=== PATIENT | female | born 1940 | race Caucasian/White ===

== ENCOUNTER 2020-04-03 20:43 | Inpatient (IN) | payer MEDICARE, OTHER ==
[~2020-04-03] VITALS: Ht 154.9 cm; Wt 79.4 kg
--- NOTE | 2020-04-03 21:01 | NUR ---
GWENDOLYN FROM [facility] REPORTED NEGATIVE COVID STATUS.
[2020-04-03] MEDS ORDERED: LEVO25TA9 PO (21:41)
[2020-04-03] MEDS ORDERED: DILT-32 PO (21:41)
[2020-04-03] MEDS ORDERED: DOCU100C36 PO (21:41)
[2020-04-03] MEDS ORDERED: ATEN50TA PO (21:41)
[2020-04-03] MEDS ORDERED: APIX5TAB4 PO (21:41)
[2020-04-03] MEDS ORDERED: HYDR-4384 PO (21:41)
[2020-04-03] MEDS ORDERED: PANT40TA4 PO (21:41)
[2020-04-03] MEDS ORDERED: GABA-532 PO (21:41)
[2020-04-03] MEDS ORDERED: ONDA4TAB5 PO (21:41)
[2020-04-03] MEDS ORDERED: VALS40TA4 PO (21:41)
[2020-04-03] MEDS ORDERED: ATOR10TA PO (21:41)
--- NOTE | 2020-04-03 21:50 | NUR ---
GPS/ ADMIT TO [facility] UNDER DR. RAMIREZ
[2020-04-03] MEDS ORDERED: hydrALAZINE HCL 50 MG TABLET PO ONE (22:15)
[2020-04-03 22:30] VITALS: BP 187/106
[2020-04-03] MEDS: ACETAMINOPHEN 325 MG TABLET PO PRN (22:59)
[2020-04-03] MEDS ORDERED: hydrALAZINE HCL 25 MG TABLET ONE (23:34)
--- NOTE | 2020-04-03 23:45 | NUR ---
GPS/RN: Admit to [facility] 79y/o female via gurney, accompanied by ambulance drivers. Pt admitted from [facility] on 5150 hold due to Psychosis and DTS and GD under the care of Dr. Rhodes. Pt COVID-19 Negative. Per admission pt reside in [facility] and became irritated with staffs, angry and agitation. Verbally abusive toward staff and pt was throwing stuffs on the floor she was paranoid and suspicious and accusing staff of not providing care. Pt Hx of Psychosis, Anxiety, Major Depression, Insomnia, COPD, HTN, DM, GERD, CAD and General weakness. Upon face to face interview/assessment pt is A/ox3, vital signs checked and noted blood pressure elevated at 187/106, other v/s stable. Pt was very angry and uncooperative, hostile and verbally abusive during admission assessment. Pt refused to sign or answer questions. pt was showing suspicious behavior and c/o of everything while getting situated. Pt refused skin assessment, no visible skin issue noted at this time. Pt appears unkempt and refused shower. Dr Wright was notified of BP and new order to give Hydralazine 50mg order received and carried out. Pt Rights Handbook and Advisement given, unit rules explained and orient to room/unit. Noted some weakness and safety precaution check initiated, will order PT eval and treat. Will monitor and Q/15mins head count initiated.
--- NOTE | 2020-04-04 02:02 | NUR ---
Pt refused Hydralazine at this time, will recheck BP when pt is a bit calmed.
--- NOTE | 2020-04-04 06:36 | NUR ---
Pt slept about 3.30mins during the night. Still angry and irritated and refused shower.
[2020-04-04 07:30] VITALS: BP 156/73
--- NOTE | 2020-04-04 09:10 | NUR ---
Social Work Firearms: Glove Finisher completed and submitted a [employer] firearms report for 5150 grave disability certification. A copy of report has been placed in patient chart.
[2020-04-04] MEDS: ACETAMINOPHEN 325 MG TABLET PO PRN ×2 (09:50→17:29)
[2020-04-04] MEDS ORDERED: ONDANSETRON HCL 4 MG TABLET PO PRN (10:15)
--- NOTE | 2020-04-04 10:44 | NUR ---
Social Work Initial Discharge Plan: Patient currently resides at [facility] [address], [place] [address]; ([phone]). Per Shirley, from [facility] stated that they are unsure if they will take patient back and would want this mortgage underwriter to find alternative placement. This mortgage underwriter contacted Carin ([phone]) who stated that she used to be patient's caregiver. This mortgage underwriter gathered collateral and per Carin she stated that patient has family members but they are not involved in her care. This mortgage underwriter will work with the MD and treatment team to help find alternative placement for pt.
--- NOTE | 2020-04-04 10:45 | NUR ---
Social Work Family Contact: This card writer hand contacted Carin ([phone]) who stated that she used to be patient's caregiver. This card writer hand gathered collateral and per Carin she stated that patient has family members but they are not involved in her care.
[2020-04-04] MEDS: HYDROXYZINE PAMOATE 25 MG CAPSULE PO PRN (11:33)
[2020-04-04] MEDS: HYDROCODONE/APAP 5-325MG TABLET PO PRN ×3 (11:37→20:49)
[2020-04-04] MEDS: LEVOTHYROXINE SODIUM 25 MCG TABLET PO SCH (11:45)
[2020-04-04] MEDS: GABAPENTIN 100 MG CAPSULE PO SCH (11:45)
[2020-04-04] MEDS: PANTOPRAZOLE SODIUM 40 MG TABLET.DR PO SCH (11:45)
[2020-04-04] MEDS: DILTIAZEM HCL CD 120 MG CAP.SR.24H PO SCH (11:45)
[2020-04-04] MEDS: VALSARTAN 40 MG TABLET PO SCH (11:45)
[2020-04-04] MEDS: ATENOLOL 50 MG TABLET PO SCH ×2 (11:50→17:33)
[2020-04-04] MEDS ORDERED: HYDROCODONE/APAP 5-325MG TABLET PO SCH (12:00)
[2020-04-04 16:00] VITALS: BP 144/86
[2020-04-04] MEDS: DOCUSATE SODIUM 100 MG CAPSULE PO SCH (17:29)
[2020-04-04] MEDS: APIXABAN 5 MG TABLET PO SCH (17:32)
[2020-04-04 20:02] VITALS: BP 130/73
[2020-04-04] MEDS: risperiDONE 0.5 MG TABLET PO SCH (20:13)
[2020-04-04] MEDS: ATORVASTATIN 10 MG TABLET PO SCH (20:13)
[2020-04-05 07:30] VITALS: BP 146/83
[2020-04-05] MEDS: GABAPENTIN 100 MG CAPSULE PO SCH (08:50)
[2020-04-05] MEDS: DOCUSATE SODIUM 100 MG CAPSULE PO SCH ×2 (08:50→17:26)
[2020-04-05] MEDS: risperiDONE 0.5 MG TABLET PO SCH ×2 (08:50→20:40)
[2020-04-05] MEDS: ATENOLOL 50 MG TABLET PO SCH ×2 (08:51→17:27)
[2020-04-05] MEDS: LEVOTHYROXINE SODIUM 25 MCG TABLET PO SCH (08:52)
[2020-04-05] MEDS: DILTIAZEM HCL CD 120 MG CAP.SR.24H PO SCH (08:53)
[2020-04-05] MEDS: VALSARTAN 40 MG TABLET PO SCH (08:53)
[2020-04-05] MEDS: PANTOPRAZOLE SODIUM 40 MG TABLET.DR PO SCH (08:54)
[2020-04-05] MEDS ORDERED: VALSARTAN 40 MG TABLET PO SCH (09:00)
[2020-04-05] MEDS ORDERED: DILTIAZEM HCL CD 120 MG CAP.SR.24H PO SCH (09:00)
[2020-04-05] MEDS: APIXABAN 5 MG TABLET PO SCH ×2 (09:02→17:28)
[2020-04-05] MEDS: HYDROCODONE/APAP 5-325MG TABLET PO PRN ×2 (10:58→16:10)
--- NOTE | 2020-04-05 12:57 | NUR ---
Social Work Coordination of Care: This senior medical writer faxed Jane arriola from [facility] ([phone]) and sent patient's clinicals. Per Jane, pt is accepted.
[2020-04-05 16:00] VITALS: BP 108/65
--- NOTE | 2020-04-05 16:28 | NUR ---
Gps/Door Clamper- Ambulates around with front wheel walker. Attended her group therapy this am. Making her needs known to the staff. Gets anxious, redirectable.. Complained of stomach discomfort , encouraged to eat well , during her meals, claimed does not want to eat much r/t gas discomfort. Instructed patient to let staff know when needed to go to the bathroom to void, needed to obtain urine specimen.
[2020-04-05 20:00] VITALS: BP 120/63
[2020-04-05] MEDS: ATORVASTATIN 10 MG TABLET PO SCH (20:40)
[2020-04-05 21:51] LABS: *BILIRUBIN,URIN NEGATIVE (NEGATIVE); *BLOOD, URINE NEGATIVE (NEGATIVE); *CLARITY,URINE CLEAR (CLEAR); *COLOR,URINE YELLOW (YELLOW); *KETONES,URINE NEGATIVE (NEGATIVE); *UROBILINOGEN,URINE 0.2 E.U./dl (NORMAL); LEUKOCYTE ESTERASE ,URINE TRACE (NEGATIVE); NITRITE, URINE NEGATIVE (NEGATIVE); PH,URINE 5.5 (5.0-8.0); UGLUCOSE NEGATIVE (NEGATIVE)
[2020-04-05] MEDS: ZOLPIDEM 5 MG TABLET PO PRN (22:37)
[2020-04-05 22:47] LABS: RBC,URINE 0-3 /HPF (0-3); WBC,URINE 20-50 /HPF (0-3)
[2020-04-05 22:49] LABS: BACTERIA,URINE FEW /HPF (NONE SEEN); MUCUS,URINE MODERATE /LPF (0-FEW); SQUAMOUS EPITHELIAL CELL,UR MODERATE /HPF (NONE SEEN)
--- NOTE | 2020-04-06 06:13 | NUR ---
PATIENT SLEPT FOR APPROX. 7.30 HRS THROUGH THE NIGHT. NO AGGRESSIVE/COMBATIVE BX NOTED DURING THE SHIFT. REMAINS COMPLIANT WITH MEDICATION REGIMENT.
[2020-04-06 07:30] VITALS: BP 108/60
[2020-04-06 07:49] LABS: BASOPHILS % (AUTO) 0.4 % (0.0-2.0); EOSINOPHILS # (AUTO) 0.1 K/uL (0.0-0.7); HEMATOCRIT 45.5 % (31.2-41.9); HEMOGLOBIN 15.1 g/dL (10.9-14.3); LYMPHOCYTES # (AUTO) 1.4 K/uL (20.0-40.0); LYMPHOCYTES % (AUTO) 15.6 % (20.5-51.5); MEAN CORPUSCULAR HEMOGLOBIN 27.8 uug (24.7-32.8); MEAN CORPUSCULAR HGB CONC 33 g/dL (32.3-35.6); MEAN CORPUSCULAR VOLUME 83.9 fL (75.5-95.3); MONOCYTES # (AUTO) 0.6 K/uL (2.0-10.0); MONOCYTES % (AUTO) 6.9 % (0.0-11.0); NEUTROPHILS # (AUTO) 6.7 K/uL (1.8-8.9); NEUTROPHILS % (AUTO) 76.1 % (38.5-71.5); PLATELET COUNT (AUTO) 194 K/uL (179-408); RED BLOOD CELL COUNT(AUTO) 5.43 MIL/uL (3.63-4.92); WHITE BLOOD COUNT (AUTO) 8.8 K/uL (3.8-11.8)
[2020-04-06 07:59] LABS: CREATININE 1.2 mg/dL (0.6-1.3); POTASSIUM 3.8 mmol/L (3.5-5.1)
[2020-04-06 08:15] LABS: THYROID STIMULATING HORMONE 1.722 mIU/mL (0.358-3.740)
[2020-04-06] MEDS: GABAPENTIN 100 MG CAPSULE PO SCH (09:04)
[2020-04-06] MEDS: risperiDONE 0.5 MG TABLET PO SCH ×2 (09:04→20:23)
[2020-04-06] MEDS: PANTOPRAZOLE SODIUM 40 MG TABLET.DR PO SCH (09:04)
[2020-04-06] MEDS: VALSARTAN 40 MG TABLET PO SCH (09:05)
[2020-04-06] MEDS: DILTIAZEM HCL CD 120 MG CAP.SR.24H PO SCH (09:05)
[2020-04-06] MEDS: APIXABAN 5 MG TABLET PO SCH ×2 (09:06→17:31)
[2020-04-06] MEDS: LEVOTHYROXINE SODIUM 25 MCG TABLET PO SCH (09:07)
[2020-04-06] MEDS: DOCUSATE SODIUM 100 MG CAPSULE PO SCH ×2 (09:07→17:20)
[2020-04-06] MEDS: ATENOLOL 50 MG TABLET PO SCH ×2 (09:07→17:29)
[2020-04-06] MEDS: HYDROXYZINE PAMOATE 25 MG CAPSULE PO PRN ×2 (13:43→18:45)
[2020-04-06] MEDS: ACETAMINOPHEN 325 MG TABLET PO PRN (13:43)
[2020-04-06] MEDS: HYDROCODONE/APAP 5-325MG TABLET PO PRN (15:28)
[2020-04-06 16:00] VITALS: BP 146/83
[2020-04-06] MEDS ORDERED: BISACODYL 5 MG TABLET.DR PO ONE (16:00)
--- NOTE | 2020-04-06 16:00 | NUR ---
Gps/Clinical Appeals Auditor- Per patient, constipation resolved , had large BM this pm per patient. Also verbalized adequate relief from her right groin pain, back pain. Ambulates around with FWW. stayed in her group therapy .Cooperative with staff, attended her group therapy.
--- NOTE | 2020-04-06 18:46 | NUR ---
Gps/Web Specialist- Came to Nurses station c/o feeling anxious, does not want to stay in her room, does not like her roommate. B/P 116/69 HR 76 , 02 sat 94 % pt. reassure.Vistaril 25 mg 1 cap. po. given
[2020-04-06] MEDS: ATORVASTATIN 10 MG TABLET PO SCH (20:22)
[2020-04-06] MEDS: SULFAMETH/TRIMETH 800/160 MG TABLET PO SCH (20:22)
[2020-04-06 20:36] VITALS: BP 107/82
--- NOTE | 2020-04-06 21:00 | NUR ---
Dr Singer placed Pt on a [address] notified via [facility] portal. Pt was served with a copy of the 5200 by this functional tester typewriters.
[2020-04-06] MEDS: ZOLPIDEM 5 MG TABLET PO PRN (22:34)
--- NOTE | 2020-04-07 05:44 | NUR ---
GPS/ Pt received in TV room, A/Ox3, verbally responsive and able to make needs known. Denied SI, or Hi, pt still noted with verbal abusive calling roommate all kinds of bad name. Pt was advised to choice better words to call others and she was not responding to advised, encouraged and reminded to be polite. Pt was cooperative with routine medications and requested PRN sleeping aid. Noted effect and pt asleep with even breathing noted, continue monitor.
[2020-04-07 07:30] VITALS: BP 123/43
[2020-04-07] MEDS: SULFAMETH/TRIMETH 800/160 MG TABLET PO SCH ×2 (08:12→20:21)
[2020-04-07] MEDS: DOCUSATE SODIUM 100 MG CAPSULE PO SCH ×2 (08:13→17:05)
[2020-04-07] MEDS: DILTIAZEM HCL CD 120 MG CAP.SR.24H PO SCH (08:13)
[2020-04-07] MEDS: risperiDONE 0.5 MG TABLET PO SCH ×2 (08:14→20:22)
[2020-04-07] MEDS: GABAPENTIN 100 MG CAPSULE PO SCH (08:14)
[2020-04-07] MEDS: LEVOTHYROXINE SODIUM 25 MCG TABLET PO SCH (08:14)
[2020-04-07] MEDS: ATENOLOL 50 MG TABLET PO SCH ×2 (08:14→17:05)
[2020-04-07] MEDS: VALSARTAN 40 MG TABLET PO SCH (08:14)
[2020-04-07] MEDS: PANTOPRAZOLE SODIUM 40 MG TABLET.DR PO SCH (08:14)
[2020-04-07] MEDS: HYDROCODONE/APAP 5-325MG TABLET PO PRN (08:15)
--- NOTE | 2020-04-07 08:15 | NUR ---
Sitting in the dining area, complaining of pain in the perineal area. PRN medication given. Encouraged fluid intake
[2020-04-07] MEDS: APIXABAN 5 MG TABLET PO SCH ×2 (08:16→17:06)
[2020-04-07] MEDS: HYDROXYZINE PAMOATE 25 MG CAPSULE PO PRN ×2 (11:20→18:31)
--- NOTE | 2020-04-07 11:20 | NUR ---
Anxious about pain, PRN medication given. UA specimen sent to lab
[2020-04-07 11:41] LABS: *BILIRUBIN,URIN NEGATIVE (NEGATIVE); *BLOOD, URINE NEGATIVE (NEGATIVE); *CLARITY,URINE CLEAR (CLEAR); *COLOR,URINE YELLOW (YELLOW); *KETONES,URINE NEGATIVE (NEGATIVE); *UROBILINOGEN,URINE 0.2 E.U./dl (NORMAL); LEUKOCYTE ESTERASE ,URINE 1+ (NEGATIVE); NITRITE, URINE NEGATIVE (NEGATIVE); UGLUCOSE NEGATIVE (NEGATIVE)
--- NOTE | 2020-04-07 15:16 | NUR ---
Sitting in the dining area, watching TV, interacting with others
[2020-04-07 16:00] VITALS: BP 106/54
--- NOTE | 2020-04-07 18:39 | NUR ---
Anxious, angry about the her gown being big on her and long that drags on the floor. Redirected. PRN medication given
[2020-04-07 19:11] LABS: BACTERIA,URINE 1 /HPF (NONE SEEN); RBC,URINE 0-3 /HPF (0-3); SQUAMOUS EPITHELIAL CELL,UR FEW /HPF (NONE SEEN)
[2020-04-07] MEDS: ATORVASTATIN 10 MG TABLET PO SCH (20:22)
[2020-04-07 20:32] VITALS: BP 155/66
[2020-04-07] MEDS: ZOLPIDEM 5 MG TABLET PO PRN (22:04)
[2020-04-08 08:06] VITALS: BP 144/80
[2020-04-08] MEDS: DOCUSATE SODIUM 100 MG CAPSULE PO SCH ×2 (09:03→16:38)
[2020-04-08] MEDS: SULFAMETH/TRIMETH 800/160 MG TABLET PO SCH ×2 (09:03→20:46)
[2020-04-08] MEDS: GABAPENTIN 100 MG CAPSULE PO SCH (09:03)
[2020-04-08] MEDS: LEVOTHYROXINE SODIUM 25 MCG TABLET PO SCH (09:03)
[2020-04-08] MEDS: PANTOPRAZOLE SODIUM 40 MG TABLET.DR PO SCH (09:03)
[2020-04-08] MEDS: risperiDONE 0.5 MG TABLET PO SCH ×2 (09:03→20:46)
[2020-04-08] MEDS: APIXABAN 5 MG TABLET PO SCH ×2 (09:04→16:43)
[2020-04-08] MEDS: ATENOLOL 50 MG TABLET PO SCH ×2 (09:04→16:38)
[2020-04-08] MEDS: DILTIAZEM HCL CD 120 MG CAP.SR.24H PO SCH (09:05)
[2020-04-08] MEDS: VALSARTAN 40 MG TABLET PO SCH (09:05)
[2020-04-08] MEDS: HYDROCODONE/APAP 5-325MG TABLET PO PRN (11:57)
[2020-04-08 15:39] VITALS: BP 146/65
--- NOTE | 2020-04-08 18:30 | NUR ---
Pt has been cooperative taking her pills. Pt has been quiet through shift. No aggressive behavior noted this shift.
[2020-04-08 20:06] VITALS: BP 122/80
[2020-04-08] MEDS: ATORVASTATIN 10 MG TABLET PO SCH (20:46)
[2020-04-08] MEDS: ZOLPIDEM 5 MG TABLET PO PRN (23:28)
--- NOTE | 2020-04-09 07:22 | NUR ---
patient slept for approx 6.30 hrs through the night. patient noted less irritable, less labile. will continue to monitor.
[2020-04-09 07:30] VITALS: BP 152/72
--- NOTE | 2020-04-09 08:00 | NUR ---
Pt c/o burning sensation while urinating. Educated pt that she had UTI and she in on bactrim abx as ordered. Encouraged pt to drink water to help her urinate and have stead flow with urination. Pt ambulatory with good balance.
[2020-04-09] MEDS: DOCUSATE SODIUM 100 MG CAPSULE PO SCH ×2 (08:51→16:35)
[2020-04-09] MEDS: risperiDONE 0.5 MG TABLET PO SCH ×2 (08:51→20:14)
[2020-04-09] MEDS: LEVOTHYROXINE SODIUM 25 MCG TABLET PO SCH (08:52)
[2020-04-09] MEDS: SULFAMETH/TRIMETH 800/160 MG TABLET PO SCH ×2 (08:52→20:14)
[2020-04-09] MEDS: PANTOPRAZOLE SODIUM 40 MG TABLET.DR PO SCH (08:52)
[2020-04-09] MEDS: DILTIAZEM HCL CD 120 MG CAP.SR.24H PO SCH (08:53)
[2020-04-09] MEDS: VALSARTAN 40 MG TABLET PO SCH (08:53)
[2020-04-09] MEDS: APIXABAN 5 MG TABLET PO SCH ×2 (08:55→16:34)
[2020-04-09] MEDS: ATENOLOL 50 MG TABLET PO SCH ×2 (08:56→16:40)
[2020-04-09] MEDS: GABAPENTIN 100 MG CAPSULE PO SCH (08:58)
[2020-04-09] MEDS: HYDROCODONE/APAP 5-325MG TABLET PO PRN ×2 (09:20→14:56)
[2020-04-09 16:00] VITALS: BP 117/74
--- NOTE | 2020-04-09 17:00 | NUR ---
No aggressive behavior noted today. Pt cooperative and takes her medications.
--- NOTE | 2020-04-09 17:27 | NUR ---
RN, [place], notified that pt requesting to have [facility] Soft meals. [place] updated Diet order. Addendum: 04/09/20 at [address] Amended: Links added.
--- NOTE | 2020-04-09 18:06 | NUR ---
Pt tolerated mechanical diet. No coughing noted.
--- NOTE | 2020-04-09 18:18 | NUR ---
Pt. paranoid states that she ate a piece of glass. Noted abd soft bowel sound present x4.
--- NOTE | 2020-04-09 18:28 | NUR ---
Pt sundowning. Pt screaming stating that "you guys are try to kill by poisoning me with my food." Pt believes that the staff is out to kill her.
[2020-04-09 20:00] VITALS: BP 136/72
[2020-04-09] MEDS: HYDROXYZINE PAMOATE 25 MG CAPSULE PO PRN (20:14)
[2020-04-09] MEDS: ATORVASTATIN 10 MG TABLET PO SCH (20:14)
[2020-04-09] MEDS: ZOLPIDEM 5 MG TABLET PO PRN (21:46)
--- NOTE | 2020-04-10 04:43 | NUR ---
GPS/ Received pt a/o x2, pt noted with still disoriented and confuse, increase verbal abusive towards roommate and staffs. Pt was redirected with some effect. Pt became aggressive with staff when trying to weight her. Advised pt and reality oriented. Cooperative but suspicious over medications during med pass. Explained to pt all meds as order, and atb therapy given. Offer and encouraged plenty po intake and frequent void. Ambien was given per pt request and noted effect. Continue monitor with no new changes.
[2020-04-10] MEDS: SULFAMETH/TRIMETH 800/160 MG TABLET PO SCH ×2 (08:14→20:47)
[2020-04-10] MEDS: DOCUSATE SODIUM 100 MG CAPSULE PO SCH ×2 (08:15→16:23)
[2020-04-10] MEDS: risperiDONE 0.5 MG TABLET PO SCH ×2 (08:15→20:48)
[2020-04-10] MEDS: GABAPENTIN 100 MG CAPSULE PO SCH (08:15)
[2020-04-10] MEDS: PANTOPRAZOLE SODIUM 40 MG TABLET.DR PO SCH (08:15)
[2020-04-10] MEDS: ATENOLOL 50 MG TABLET PO SCH ×2 (08:17→16:23)
[2020-04-10] MEDS: DILTIAZEM HCL CD 120 MG CAP.SR.24H PO SCH (08:18)
[2020-04-10] MEDS: LEVOTHYROXINE SODIUM 25 MCG TABLET PO SCH (08:18)
[2020-04-10] MEDS: VALSARTAN 40 MG TABLET PO SCH (08:19)
[2020-04-10] MEDS: APIXABAN 5 MG TABLET PO SCH ×2 (08:20→16:26)
[2020-04-10 08:42] VITALS: BP 111/75
[2020-04-10] MEDS: HYDROCODONE/APAP 5-325MG TABLET PO PRN (08:45)
--- NOTE | 2020-04-10 14:57 | NUR ---
Probable Cause Hearing: Pts 5250 hold was upheld on the grounds of grave disability.
[2020-04-10 15:41] VITALS: BP 117/74
[2020-04-10 20:07] VITALS: BP 132/81
[2020-04-10] MEDS: ATORVASTATIN 10 MG TABLET PO SCH (20:47)
[2020-04-10] MEDS: ZOLPIDEM 5 MG TABLET PO PRN (22:06)
[2020-04-10] MEDS: HYDROXYZINE PAMOATE 25 MG CAPSULE PO PRN (23:51)
--- NOTE | 2020-04-11 05:21 | NUR ---
GPS/Pt was received awake and talking walking within unit. c/o unable to sleep and prn Ambien given at 1000pm, antianxiety given per request and continue monitor pt at this time asleep in bed comfortable with even breathing.
--- NOTE | 2020-04-11 06:51 | NUR ---
Pt noted resting in bed, slept about 5 hours during the night, awake to name and breathing even.
[2020-04-11 07:30] VITALS: BP 154/79
[2020-04-11] MEDS: DOCUSATE SODIUM 100 MG CAPSULE PO SCH ×2 (08:58→17:00)
[2020-04-11] MEDS: PANTOPRAZOLE SODIUM 40 MG TABLET.DR PO SCH (08:58)
[2020-04-11] MEDS: risperiDONE 0.5 MG TABLET PO SCH ×2 (08:58→20:42)
[2020-04-11] MEDS: GABAPENTIN 100 MG CAPSULE PO SCH (08:58)
[2020-04-11] MEDS: SULFAMETH/TRIMETH 800/160 MG TABLET PO SCH (08:58)
[2020-04-11] MEDS: ATENOLOL 50 MG TABLET PO SCH ×2 (09:01→16:56)
[2020-04-11] MEDS: DILTIAZEM HCL CD 120 MG CAP.SR.24H PO SCH (09:02)
[2020-04-11] MEDS: LEVOTHYROXINE SODIUM 25 MCG TABLET PO SCH (09:02)
[2020-04-11] MEDS: VALSARTAN 40 MG TABLET PO SCH (09:03)
[2020-04-11] MEDS: APIXABAN 5 MG TABLET PO SCH ×2 (09:04→16:57)
[2020-04-11] MEDS: HYDROXYZINE PAMOATE 25 MG CAPSULE PO PRN (14:17)
[2020-04-11] MEDS: MAG HYDROX/AL HYDROX/SIMETH 30 ML LIQUID UDC PO PRN (15:25)
[2020-04-11 16:00] VITALS: BP 131/68
[2020-04-11] MEDS: HYDROCODONE/APAP 5-325MG TABLET PO PRN (16:56)
[2020-04-11] MEDS: FLUVOXAMINE MALEATE 25 MG TABLET PO SCH ×2 (17:00→17:42)
[2020-04-11 20:02] VITALS: BP 110/63
[2020-04-11] MEDS: ATORVASTATIN 10 MG TABLET PO SCH (20:41)
[2020-04-11] MEDS: ZOLPIDEM 5 MG TABLET PO PRN (21:37)
--- NOTE | 2020-04-11 23:23 | NUR ---
Received patient while walking in the hallway. Able to make needs known. Calm and cooperative. No behavioral issues. Denies SI. Compliant with medications. Safety measures maintained. Continue to monitor.
[2020-04-12 07:30] VITALS: BP 144/94
[2020-04-12] MEDS: PANTOPRAZOLE SODIUM 40 MG TABLET.DR PO SCH (08:53)
[2020-04-12] MEDS: GABAPENTIN 100 MG CAPSULE PO SCH (08:53)
[2020-04-12] MEDS: FLUVOXAMINE MALEATE 25 MG TABLET PO SCH ×3 (08:53→17:48)
[2020-04-12] MEDS: risperiDONE 0.5 MG TABLET PO SCH (08:53)
[2020-04-12] MEDS: DOCUSATE SODIUM 100 MG CAPSULE PO SCH ×2 (08:54→17:50)
[2020-04-12] MEDS: DILTIAZEM HCL CD 120 MG CAP.SR.24H PO SCH (08:55)
[2020-04-12] MEDS: VALSARTAN 40 MG TABLET PO SCH (08:55)
[2020-04-12] MEDS: APIXABAN 5 MG TABLET PO SCH ×2 (08:57→18:00)
[2020-04-12] MEDS: ATENOLOL 50 MG TABLET PO SCH ×2 (08:58→17:49)
[2020-04-12] MEDS: HYDROCODONE/APAP 5-325MG TABLET PO PRN (09:13)
[2020-04-12] MEDS: LEVOTHYROXINE SODIUM 25 MCG TABLET PO SCH (10:29)
[2020-04-12 16:00] VITALS: BP 105/72
[2020-04-12 20:46] VITALS: BP 155/74
[2020-04-12] MEDS: ATORVASTATIN 10 MG TABLET PO SCH (21:45)
[2020-04-12] MEDS: risperiDONE 1 MG TABLET PO SCH (21:45)
[2020-04-12] MEDS: ZOLPIDEM 5 MG TABLET PO PRN (21:45)
--- NOTE | 2020-04-13 05:49 | NUR ---
NSG/GPS Patient first observed walking in the hallway. Able to make needs known. Calm and cooperative. No behavioral issues. Denies SI. Compliant with medications requested a prn for insomnia that was administered as ordered. Safety measures maintained. Continue to monitor.
[2020-04-13 08:30] VITALS: BP 136/79
[2020-04-13] MEDS: ACETAMINOPHEN 325 MG TABLET PO PRN (08:48)
[2020-04-13] MEDS: GABAPENTIN 100 MG CAPSULE PO SCH (08:48)
[2020-04-13] MEDS: FLUVOXAMINE MALEATE 25 MG TABLET PO SCH ×4 (08:48→17:48)
[2020-04-13] MEDS: risperiDONE 1 MG TABLET PO SCH ×2 (08:48→21:26)
[2020-04-13] MEDS: DILTIAZEM HCL CD 120 MG CAP.SR.24H PO SCH (08:49)
[2020-04-13] MEDS: ATENOLOL 50 MG TABLET PO SCH ×2 (08:50→17:35)
[2020-04-13] MEDS: APIXABAN 5 MG TABLET PO SCH ×2 (08:50→17:42)
[2020-04-13] MEDS: VALSARTAN 40 MG TABLET PO SCH (08:51)
[2020-04-13] MEDS: LEVOTHYROXINE SODIUM 25 MCG TABLET PO SCH (08:51)
[2020-04-13] MEDS: DOCUSATE SODIUM 100 MG CAPSULE PO SCH ×2 (08:57→17:31)
[2020-04-13] MEDS: PANTOPRAZOLE SODIUM 40 MG TABLET.DR PO SCH (08:57)
[2020-04-13 16:00] VITALS: BP 108/62
[2020-04-13 20:51] VITALS: BP 111/66
[2020-04-13] MEDS: ATORVASTATIN 10 MG TABLET PO SCH (21:26)
[2020-04-14] MEDS: HYDROCODONE/APAP 5-325MG TABLET PO PRN ×2 (04:12→13:35)
[2020-04-14 07:30] VITALS: BP 167/90
[2020-04-14] MEDS: VALSARTAN 40 MG TABLET PO SCH (08:35)
[2020-04-14] MEDS: risperiDONE 1 MG TABLET PO SCH ×2 (08:36→20:15)
[2020-04-14] MEDS: DILTIAZEM HCL CD 120 MG CAP.SR.24H PO SCH (08:36)
[2020-04-14] MEDS: PANTOPRAZOLE SODIUM 40 MG TABLET.DR PO SCH (08:36)
[2020-04-14] MEDS: FLUVOXAMINE MALEATE 25 MG TABLET PO SCH ×3 (08:36→16:34)
[2020-04-14] MEDS: LEVOTHYROXINE SODIUM 25 MCG TABLET PO SCH (08:36)
[2020-04-14] MEDS: DOCUSATE SODIUM 100 MG CAPSULE PO SCH ×2 (08:36→16:37)
[2020-04-14] MEDS: GABAPENTIN 100 MG CAPSULE PO SCH (08:36)
[2020-04-14] MEDS: ATENOLOL 50 MG TABLET PO SCH ×2 (08:37→16:38)
[2020-04-14] MEDS: APIXABAN 5 MG TABLET PO SCH ×2 (08:39→16:35)
[2020-04-14 16:00] VITALS: BP 139/82
[2020-04-14] MEDS: HYDROXYZINE PAMOATE 25 MG CAPSULE PO PRN ×2 (16:54→20:15)
--- NOTE | 2020-04-14 18:36 | NUR ---
Received patient calm in bed. Patient compliant with medication with good effect. Patient refuse to transfer to other room for more comfort despite of encouragement. not in distress. will continue monitor
--- NOTE | 2020-04-14 19:16 | NUR ---
Patient noted quarreling with roommate. Patient spills water in the bed. Patient verbalize" nobody care for me" Patient reorient and advice that she is here to be better. Patient PRN medication for anxiety given. Patient needed attended. will continue monitor
[2020-04-14 20:00] VITALS: BP 117/78
[2020-04-14] MEDS: ATORVASTATIN 10 MG TABLET PO SCH (20:15)
[2020-04-14] MEDS: ZOLPIDEM 5 MG TABLET PO PRN (22:06)
[2020-04-15] MEDS: HYDROCODONE/APAP 5-325MG TABLET PO PRN ×3 (03:38→20:34)
[2020-04-15 07:30] VITALS: BP 149/81
[2020-04-15] MEDS: MAG HYDROX/AL HYDROX/SIMETH 30 ML LIQUID UDC PO PRN (08:37)
[2020-04-15] MEDS: GABAPENTIN 100 MG CAPSULE PO SCH (08:38)
[2020-04-15] MEDS: risperiDONE 0.5 MG TABLET PO SCH ×2 (08:38→12:12)
[2020-04-15] MEDS: PANTOPRAZOLE SODIUM 40 MG TABLET.DR PO SCH (08:38)
[2020-04-15] MEDS: FLUVOXAMINE MALEATE 25 MG TABLET PO SCH ×3 (08:38→17:14)
[2020-04-15] MEDS: DOCUSATE SODIUM 100 MG CAPSULE PO SCH ×2 (08:38→17:14)
[2020-04-15] MEDS: ATENOLOL 50 MG TABLET PO SCH ×2 (08:39→17:16)
[2020-04-15] MEDS: LEVOTHYROXINE SODIUM 25 MCG TABLET PO SCH (08:40)
[2020-04-15] MEDS: APIXABAN 5 MG TABLET PO SCH ×2 (08:41→17:15)
[2020-04-15] MEDS: VALSARTAN 40 MG TABLET PO SCH (08:42)
[2020-04-15] MEDS: DILTIAZEM HCL CD 120 MG CAP.SR.24H PO SCH (08:42)
[2020-04-15] MEDS: HYDROXYZINE PAMOATE 25 MG CAPSULE PO PRN (17:13)
--- NOTE | 2020-04-15 18:30 | NUR ---
Pt received resting in room, awake, and calm. Pt compliant with medication administration, able to make needs known, denies SI/HI and able to CFS at this time. Pt became anxious talking with staff and roommate, PRN anxiety medication administered. All needs attended to promptly throughout this shift. Will continue to monitor and endorse.
[2020-04-15 20:00] VITALS: BP 127/75
[2020-04-15] MEDS: risperiDONE 1 MG TABLET PO SCH (20:24)
[2020-04-15] MEDS: ATORVASTATIN 10 MG TABLET PO SCH (20:24)
--- NOTE | 2020-04-15 21:39 | NUR ---
Pt in bed resting at this time. Night medications were taken. Medicated also with norco for c/o epigastric pain. Will continue to monitor.
[2020-04-15] MEDS: ZOLPIDEM 5 MG TABLET PO PRN (22:53)
--- NOTE | 2020-04-16 06:31 | NUR ---
Pt slept 6.45 hrs. Ambien given last night. No further c/o pain. Resting in bed at this time. Compliant with medications.
[2020-04-16 07:30] VITALS: BP 176/98
[2020-04-16] MEDS: DOCUSATE SODIUM 100 MG CAPSULE PO SCH ×2 (09:14→17:15)
[2020-04-16] MEDS: HYDROXYZINE PAMOATE 25 MG CAPSULE PO PRN ×2 (09:14→13:22)
[2020-04-16] MEDS: PANTOPRAZOLE SODIUM 40 MG TABLET.DR PO SCH (09:14)
[2020-04-16] MEDS: LEVOTHYROXINE SODIUM 25 MCG TABLET PO SCH (09:14)
[2020-04-16] MEDS: GABAPENTIN 100 MG CAPSULE PO SCH (09:14)
[2020-04-16] MEDS: FLUVOXAMINE MALEATE 25 MG TABLET PO SCH ×3 (09:14→17:16)
[2020-04-16] MEDS: APIXABAN 5 MG TABLET PO SCH ×2 (09:15→17:17)
[2020-04-16] MEDS: VALSARTAN 40 MG TABLET PO SCH (09:16)
[2020-04-16] MEDS: ATENOLOL 50 MG TABLET PO SCH ×2 (09:16→17:16)
[2020-04-16] MEDS: DILTIAZEM HCL CD 120 MG CAP.SR.24H PO SCH (09:17)
[2020-04-16] MEDS: risperiDONE 0.5 MG TABLET PO SCH ×2 (09:17→12:21)
[2020-04-16 16:00] VITALS: BP 126/71
[2020-04-16 20:00] VITALS: BP 114/62
[2020-04-16] MEDS: ATORVASTATIN 10 MG TABLET PO SCH (20:31)
[2020-04-16] MEDS: FLUVOXAMINE MALEATE 50 MG TABLET PO SCH (20:31)
[2020-04-16] MEDS: risperiDONE 1 MG TABLET PO SCH (20:31)
[2020-04-16] MEDS: HYDROCODONE/APAP 5-325MG TABLET PO PRN (21:14)
[2020-04-17 08:02] VITALS: BP 148/98
[2020-04-17] MEDS: HYDROXYZINE PAMOATE 25 MG CAPSULE PO PRN ×2 (08:28→16:39)
[2020-04-17] MEDS: risperiDONE 0.5 MG TABLET PO SCH ×2 (08:35→12:15)
[2020-04-17] MEDS: GABAPENTIN 100 MG CAPSULE PO SCH (08:35)
[2020-04-17] MEDS: PANTOPRAZOLE SODIUM 40 MG TABLET.DR PO SCH (08:35)
[2020-04-17] MEDS: DOCUSATE SODIUM 100 MG CAPSULE PO SCH ×2 (08:35→16:42)
[2020-04-17] MEDS: LEVOTHYROXINE SODIUM 25 MCG TABLET PO SCH (08:35)
[2020-04-17] MEDS: FLUVOXAMINE MALEATE 25 MG TABLET PO SCH ×2 (08:35→16:42)
[2020-04-17] MEDS: VALSARTAN 40 MG TABLET PO SCH (08:36)
[2020-04-17] MEDS: ATENOLOL 50 MG TABLET PO SCH ×2 (08:36→16:42)
[2020-04-17] MEDS: DILTIAZEM HCL CD 120 MG CAP.SR.24H PO SCH (08:36)
[2020-04-17] MEDS: APIXABAN 5 MG TABLET PO SCH ×2 (08:37→16:43)
--- NOTE | 2020-04-17 11:22 | NUR ---
[facility] Individual Therapy: This fiction and nonfiction writer prose met with patient to conduct brief therapy. Pt appeared guarded and withdrawn. Pt appeared to be quiet and was vague with this fiction and nonfiction writer prose. This fiction and nonfiction writer prose encouraged pt to verbalize her emotions and concerns, however, pt stated that she is tired and does not want to talk. This fiction and nonfiction writer prose encouraged pt to engage with peers.
[2020-04-17 16:17] VITALS: BP 130/64
[2020-04-17] MEDS: ACETAMINOPHEN 325 MG TABLET PO PRN (17:21)
[2020-04-17] MEDS: FLUVOXAMINE MALEATE 50 MG TABLET PO SCH (20:17)
[2020-04-17] MEDS: ATORVASTATIN 10 MG TABLET PO SCH (20:18)
[2020-04-17] MEDS: risperiDONE 1 MG TABLET PO SCH (20:18)
[2020-04-17] MEDS: HYDROCODONE/APAP 5-325MG TABLET PO PRN (20:18)
[2020-04-17 21:22] VITALS: BP 128/65
[2020-04-17] MEDS: ZOLPIDEM 5 MG TABLET PO PRN (22:46)
[2020-04-18] MEDS: HYDROXYZINE PAMOATE 25 MG CAPSULE PO PRN (05:08)
[2020-04-18 07:30] VITALS: BP 157/97
--- NOTE | 2020-04-18 08:04 | NUR ---
Social Work Discharge Note: Patient will be discharged to [facility] facility to [facility] [address] [place] [address]; ([phone]) via Ambulance transportation at 2PM. Sterile Supervisor spoke with Jane arriola, at [facility] ([phone]) who stated patient will be accepted at facility today. Patient is alert and oriented x2-3 and is not able to plan for self-care at this time but is willing to accept care provided for her at the facility. Patient denies suicidal or homicidal ideation. Patient is aware and agreeable with discharge plans. Patient does not have any next of kin to notify of discharge plan. Patient will follow-up with (Psychiatrist) Dr. Pritchett and (Lumber Press Operator) Dr. Ro at [facility]. Patient presented with euthymic mood and congruent affect.
[2020-04-18] MEDS: APIXABAN 5 MG TABLET PO SCH (08:59)
[2020-04-18] MEDS: risperiDONE 0.5 MG TABLET PO SCH ×2 (08:59→15:02)
[2020-04-18] MEDS: VALSARTAN 40 MG TABLET PO SCH (09:00)
[2020-04-18] MEDS: PANTOPRAZOLE SODIUM 40 MG TABLET.DR PO SCH (09:00)
[2020-04-18] MEDS: GABAPENTIN 100 MG CAPSULE PO SCH (09:00)
[2020-04-18] MEDS: DILTIAZEM HCL CD 120 MG CAP.SR.24H PO SCH (09:01)
[2020-04-18] MEDS: DOCUSATE SODIUM 100 MG CAPSULE PO SCH (09:01)
[2020-04-18] MEDS: FLUVOXAMINE MALEATE 25 MG TABLET PO SCH (09:01)
[2020-04-18 09:02] VITALS: BP 157/97
[2020-04-18] MEDS: ATENOLOL 50 MG TABLET PO SCH (09:02)
[2020-04-18] MEDS: LEVOTHYROXINE SODIUM 25 MCG TABLET PO SCH (09:02)
[2020-04-18] MEDS: HYDROCODONE/APAP 5-325MG TABLET PO PRN (09:08)
--- NOTE | 2020-04-18 11:00 | NUR ---
Received patient in room, patient is AAO x 2-3 , No acute distress noted noted. Patient is able to express needs verbally. Compliant with care and treatment. Took all due medications and tolerated well. Patient is ambulatory with a walker, independent with most self care. Denies any SI or HI up on assessment. Patient is aware of discharge orders and stated "I hope it is nice like this one". Safety needs in place and will continue with care.
--- NOTE | 2020-04-18 15:33 | NUR ---
Discharge notes: Patient signed all discharge paper works; all belongings verified and returned to patient. Inventory paper signed by patient. Report given to TRISTON Gutierrez at [facility]. All other needs attended. Vital signs stable. Patient picked up by Ambulance assisted by 2 medics and left at 1500.
== END 2020-04-18 17:22 | DRG 885 ==
LOC: GPS 21:18
PROVIDERS: ADMIT Psychiatry & Neurology Psychiatry; ATTEND Registered Nurse
DX: F29 Unspecified psychosis not due to a substance or known physiological condition (principal); I48.20 Chronic atrial fibrillation, unspecified; F23 Brief psychotic disorder; N39.0 Urinary tract infection, site not specified; J44.9 Chronic obstructive pulmonary disease, unspecified; G89.4 Chronic pain syndrome; Z79.01 Long term (current) use of anticoagulants; E03.9 Hypothyroidism, unspecified; G62.9 Polyneuropathy, unspecified; I10 Essential (primary) hypertension; K21.9 Gastro-esophageal reflux disease without esophagitis; E78.5 Hyperlipidemia, unspecified; B37.3 Candidiasis of vulva and vagina; F25.9 Schizoaffective disorder, unspecified
CPT/HCPCS: 36415; 84443; 85025; 87086